=== PATIENT | female | born 1950 | race Caucasian/White ===

== ENCOUNTER 2019-01-18 08:56 | Emergency (ER) | payer MEDICARE ==
[2019-01-18] MEDS ORDERED: Aspirin 81 mg CHEW TAB* 81 MG TAB.CHEW PO ONE (09:23)
--- NOTE | 2019-01-18 09:36 | ED ---
HPI Chest Pain - HPI Summary HPI Summary: 68 yr old female with the complaint of chest pain and SOB. Onset of symptoms two days ago. She feels like someone sitting on her chest at times, and she has had pain in both arms intermittently. She feels weak and tired. Denies fever, chills, coughing. She has no other complaints. her pain level is 5/10 in her arms presently. - History of Current Complaint Time Seen by Provider: 01/18/19 09:04 - Allergy/Home Medications Allergies/Adverse Reactions: Allergies Allergy/AdvReac Type Severity Reaction Status Date / Time No Known Allergies Allergy Verified 01/18/19 09:11 PMH/Surg Hx/FS Hx/Imm Hx Endocrine/Hematology History: Reports: Hx Diabetes Cardiovascular History: Denies: Hx Hypertension, Hx Pacemaker/ICD Respiratory History: Denies: Hx Asthma Sensory History: Denies: Hx Hearing Aid Psychiatric History: Denies: Hx Panic Disorder - Surgical History Surgery Procedure, Year, and Place: [facility] - Family History Known Family History: Positive: None - Social History Occupation: Retired Lives: With Family Substance Use Type: Reports: None Review of Systems Constitutional: Negative Positive: Chest Pain Positive: Shortness Of Breath All Other Systems Reviewed And Are Negative: Yes Physical Exam Triage Information Reviewed: Yes Vital Signs Reviewed: Yes Appearance: Positive: Well-Appearing, No Pain Distress Skin: Positive: Warm, Skin Color Reflects Adequate Perfusion Head/Face: Positive: Normal Head/Face Inspection Eyes: Positive: EOMI ENT: Positive: Normal ENT inspection Neck: Positive: Nontender Respiratory/Lung Sounds: Positive: Clear to Auscultation, Breath Sounds Present Cardiovascular: Positive: RRR. Negative: Murmur Abdomen Description: Positive: Nontender Musculoskeletal: Positive: Strength/ROM Intact Neurological: Positive: Sensory/Motor Intact, Alert, Oriented to Person Place, Time, CN Intact II-III Psychiatric: Positive: Normal Diagnostics - Laboratory Lab Statement: Any lab studies that have been ordered have been reviewed, and results considered in the medical decision making process. - EKG 01/18/19 Cardiac Rate: NL EKG Rhythm: Sinus Rhythm ST Segment: Normal - no STEMI Ectopy: None Chest Pain Course/Dx - Course Course Of Treatment: 68 yr old with hypoxia, chest pain. CONNOR Evans NP in [facility] and they are aware of patient coming there for further work up. - Diagnoses Provider Diagnoses: Chest pain, Hypoxia Discharge ED - Sign-Out/Discharge Documenting (check all that apply): Patient Departure All imaging exams completed and their final reports reviewed: No Studies - Discharge Plan Condition: Good Disposition: TRANS HIGHER LVL OF CARE FAC Patient Education Materials: Chest Pain (DC), Hypoxia (ED) Referrals: Carlee Franklin MD [Primary Care Provider] - - Billing Disposition and Condition Condition: GOOD Disposition: Trans Higher Lvl of Care Fac
[2019-01-18 09:46] VITALS: BP 154/75
== END 2019-01-18 09:40 | disposition short-term general hospital (02) ==
LOC: UCCORT 08:56
DX: R07.9 Chest pain, unspecified (principal); R09.02 Hypoxemia; E11.9 Type 2 diabetes mellitus without complications
CPT/HCPCS: 93005; 99213; A9270-GY; G0463